=== PATIENT | female | born 1975 | race Asian ===

== ENCOUNTER 2019-02-27 13:00 | Emergency (ER) | payer OTHER ==
[~2019-02-27] VITALS: Ht 152.4 cm; Wt 49.9 kg
[2019-02-27] MEDS ORDERED: NKM (13:05)
--- NOTE | 2019-02-27 13:12 | NUR ---
ED Nurse Note: Received report from Elisa SIMMS. Pt came in due to dizziness started an hour ago. Denies N/v and CP. AAO x4 and ambulates with steady gait. Respirations are even and non labored breathing.
[2019-02-27] MEDS ORDERED: Omnipaue 350mg/ml 100ml vial INJ PRN (13:45)
[2019-02-27] MEDS ORDERED: Dextrose 5%/Lactated Ringer's 1,000 ML IV SCH (13:45)
[2019-02-27 14:00] VITALS: BP 115/75
[2019-02-27 14:21] LABS: BASOPHILS % (AUTO) 0.3 % (0.0-2.0); EOSINOPHILS % (AUTO) 0.6 % (0.0-3.0); HEMATOCRIT 38.1 % (37.0-47.0); HEMOGLOBIN 11.8 G/DL (12.0-16.0); LYMPHOCYTES % (AUTO) 8.2 % (20.0-45.0); MEAN CORPUSCULAR VOLUME 81 FL (80-99); MONOCYTES % (AUTO) 9.2 % (1.0-10.0); NEUTROPHILS % (AUTO) 81.8 % (45.0-75.0); PLATELET COUNT 169 K/UL (150-450); RED CELL DISTRIBUTION WIDTH 18.2 % (11.6-14.8); WHITE BLOOD COUNT 16.9 K/UL (4.8-10.8)
[2019-02-27 14:44] LABS: ANION GAP 6 mmol/L (5-15); BLOOD UREA NITROGEN 8 mg/dL (7-18); CALCIUM 8.6 MG/DL (8.5-10.1); CARBON DIOXIDE 29 MMOL/L (21-32); CHLORIDE 103 MMOL/L (98-107); CREATININE 0.7 MG/DL (0.55-1.30); POTASSIUM 3.5 MMOL/L (3.5-5.1); SODIUM 138 MMOL/L (136-145)
[2019-02-27 14:48] LABS: ALANINE AMINOTRANSFERASE 18 U/L (12-78); ALBUMIN 3.3 G/DL (3.4-5.0); ALBUMIN/GLOBULIN RATIO 0.8 (1.0-2.7); ALKALINE PHOSPHATASE 68 U/L (46-116); ASPARTATE AMINO TRANSFERASE 29 U/L (15-37); BILIRUBIN,TOTAL 0.4 MG/DL (0.2-1.0)
--- NOTE | 2019-02-27 14:54 | Diagnostic Imaging Report ---
Indication: Cough Technique: One view of the chest Comparison: none Findings: Lungs and pleural spaces are clear. Heart size is normal. Impression: No acute process This agrees with the preliminary interpretation provided by the emergency room physician
--- NOTE | 2019-02-27 15:46 | NUR ---
ED Nurse Note: Pt taken to CT and stable.
--- NOTE | 2019-02-27 15:47 | Emergency Room Report ---
History of Present Illness General Chief Complaint: Dizziness Source: Patient Present Illness HPI Patient presents emergency department today complaining of dizziness. Patient also had an episode of chest pain and shortness of breath. Because of patient' s recent embolectomy patient came here for further evaluation. Patient's surgeon is Dr. Ngo. Patient denies any leg pain leg swelling. Symptoms noted to be moderate. Currently patient is asymptomatic. No other complaints are noted. No other modifying factors. No other associated signs and symptoms. No other complaints were noted. Allergies: Coded Allergies: No Known Allergies (Unverified , 02/27/19) Patient History Past Medical History: none PSxH Narrative Uterine embolization of fibroids Pertinent Family History: none Social History: Denies: smoking, alcohol use, drug use Last Menstrual Period: 01/26/19 Now: No Reviewed Nursing Documentation: PMH: Agreed; PSxH: Agreed Nursing Documentation-PMH Past Medical History: No History, Except For Review of Systems All Other Systems: negative except mentioned in HPI Physical Exam Vital Signs Date Time Temp Pulse Resp B/P (MAP) Pulse Ox O2 Delivery O2 Flow Rate FiO2 02/27/19 13:02 98.1 94 16 101/67 (78) 98 Room Air Sp02 EP Interpretation: reviewed, normal General Appearance: normal inspection, well appearing, no apparent distress, alert Head: atraumatic Eyes: bilateral eye normal inspection ENT: normal ENT inspection, hearing grossly normal, normal voice Neck: normal inspection, full range of motion, supple, no bony tend Respiratory: normal inspection, lungs clear, normal breath sounds, no respiratory distress, no retraction, no wheezing Cardiovascular #1: regular rate, rhythm, no edema Gastrointestinal: normal inspection, normal bowel sounds, non tender, soft, no guarding, no hernia Genitourinary: no CVA tenderness Musculoskeletal: normal inspection, back normal, normal range of motion Neurologic: normal inspection, alert, responsive, speech normal Psychiatric: normal inspection, judgement/insight normal, mood/affect normal Medical Decision Making Diagnostic Impression: Primary Impression: Dizziness Additional Impression: Dyspnea ER Course Patient presents emergency department today complaining of shortness of breath. Dizziness and chest discomfort. Differential diagnoses include acute pneumonia, CHF, acute coronary syndrome, pneumothorax, asthma, pulmonary embolism COPD flare, just to name a few. Given the severity of the patient's presentation I felt this is a highly complex patient. This patient required extensive workup. Patient's laboratory work-up was negative. However patient require CT scan to rule out pulmonary embolism. Case was signed out to Dr. Xiao for final disposition. . Labs Test 02/27/19 13:53 02/27/19 13:56 Urine HCG, Qualitative Negative (NEGATIVE) White Blood Count 16.9 K/UL (4.8-10.8) Red Blood Count 4.70 M/UL (4.20-5.40) Hemoglobin 11.8 G/DL (12.0-16.0) Hematocrit 38.1 % (37.0-47.0) Mean Corpuscular Volume 81 FL (80-99) Mean Corpuscular Hemoglobin 25.1 PG (27.0-31.0) Mean Corpuscular Hemoglobin Concent 30.9 G/DL (32.0-36.0) Red Cell Distribution Width 18.2 % (11.6-14.8) Platelet Count 169 K/UL (150-450) Mean Platelet Volume 9.3 FL (6.5-10.1) Neutrophils (%) (Auto) 81.8 % (45.0-75.0) Lymphocytes (%) (Auto) 8.2 % (20.0-45.0) Monocytes (%) (Auto) 9.2 % (1.0-10.0) Eosinophils (%) (Auto) 0.6 % (0.0-3.0) Basophils (%) (Auto) 0.3 % (0.0-2.0) Prothrombin Time 10.2 SEC (9.30-11.50) Prothromb Time International Ratio 1.0 (0.9-1.1) Activated Partial Thromboplast Time 30 SEC (23-33) Sodium Level 138 MMOL/L (136-145) Potassium Level 3.5 MMOL/L (3.5-5.1) Chloride Level 103 MMOL/L (98-107) Carbon Dioxide Level 29 MMOL/L (21-32) Anion Gap 6 mmol/L (5-15) Blood Urea Nitrogen 8 mg/dL (7-18) Creatinine 0.7 MG/DL (0.55-1.30) Estimat Glomerular Filtration Rate > 60 mL/min (>60) Glucose Level 105 MG/DL (74-106) Calcium Level 8.6 MG/DL (8.5-10.1) Total Bilirubin 0.4 MG/DL (0.2-1.0) Aspartate Amino Transf (AST/SGOT) 29 U/L (15-37) Alanine Aminotransferase (ALT/SGPT) 18 U/L (12-78) Alkaline Phosphatase 68 U/L (46-116) Troponin I 0.000 ng/mL (0.000-0.056) Total Protein 7.6 G/DL (6.4-8.2) Albumin 3.3 G/DL (3.4-5.0) Globulin 4.3 g/dL Albumin/Globulin Ratio 0.8 (1.0-2.7) EKG Diagnostic Results Rate: normal Rhythm: NSR ST Segments: no acute changes Rhythm Strip Diag. Results EP Interpretation: yes Rate: 89 Rhythm: NSR, no PVC's, no ectopy Chest X-Ray Diagnostic Results Chest X-Ray Diagnostic Results : Chest X-Ray Ordered: Yes # of Views/Limited/Complete: 1 View Indication: Chest Pain EP Interpretation: Yes Interpretation: no consolidation, no effusion, no pneumothorax, no acute cardiopulmonary disease Impression: No acute disease Electronically Signed by: Electronically signed by Doc See MD Last Vital Signs Date Time Temp Pulse Resp B/P (MAP) Pulse Ox O2 Delivery O2 Flow Rate FiO2 02/27/19 14:00 98.3 78 20 115/75 99 Room Air Referrals: Rojelio Ngo MD (PCP) Doc See MD Feb 27, 2019 15:47
--- NOTE | 2019-02-27 16:00 | NUR ---
ED Nurse Note: Pt came back from CT and stable.
[2019-02-27 16:04] VITALS: BP 122/79
--- NOTE | 2019-02-27 16:36 | Diagnostic Imaging Report ---
ndication: Chest pain and shortness of breath Technique: IV administration nonionic contrast. Spiral acquisitions obtained from the lung bases to the lung apices. Multiplanar and 3-D reconstructions were generated. Total dose length product 855 mGycm. CTDIvol(s) 54 mGy. Dose reduction achieved using automated exposure control Comparison: none Findings: There is good quality opacification of the pulmonary arteries. No intraluminal filling defects or other findings to suggest acute pulmonary embolus are demonstrated. No pulmonary artery dilatation demonstrated. No right ventricular dilatation. The heart size is normal. Normal caliber and branching anatomy of the great neck vessels. No evidence of thoracic aortic aneurysm or dissection demonstrated. There is a subpleural 5 mm nodule in the posterior left lower lobe, image 64 series 4. No other nodules are demonstrated. The lungs are otherwise clear. No infiltrates, effusions, or masses or congestion. The included portion of the thyroid demonstrates a subcentimeter left lower pole nodule. No mediastinal or hilar mass or adenopathy. There is a small sliding-type hiatal hernia. No axillary or chest wall mass or adenopathy. The included upper abdominal anatomy is unremarkable. Impression: Negative for acute pulmonary embolus or other acute thoracic pathology Incidental finding of subpleural left lower lobe 5 mm nodule. No further follow-up is necessary if there is no significant smoking history or other risk factors for lung carcinoma. If there are significant risk factors, then follow-up CT at 6-12 months is recommended Subcentimeter left lower pole thyroid nodule incidentally noted. No further follow-up necessary Small sliding-type hiatal hernia The CT scanner at [facility] is accredited by the [employer] and the scans are performed using protocols designed to limit radiation exposure to as low as reasonably achievable to attain images of sufficient resolution adequate for diagnostic evaluation.
[2019-02-27 17:04] VITALS: BP 134/76
--- NOTE | 2019-02-27 17:04 | NUR ---
ER DISCHARGE NOTE: Patient is cleared to be discharged per ERMD, pt is aox4, on room air, with stable vital signs. pt was given dc instructions, pt was able to verbalize understanding, pt id band and iv site removed without complications. pt is able to ambulate with steady gait. pt took all belongings and left with her family member.
--- NOTE | 2019-03-01 07:21 | General Surgery Progress Note ---
General Surgery-Progress Note Subjective Day of Surgery: february 25 Procedure Performed uterine artery embolization Symptoms: improved, tolerating diet, voiding well, passing flatus Objective Dressing: dry Wound: clean, dry, intact Drains: none Cardiovascular: RSR Respiratory: clear Abdomen: soft, flat, scaphoid, tenderness, present bowel sounds Extremities: no edema, no tenderness, no cyanosis wbc 16K, chem panel wnl. Imaging CT angiogram chest negative for pulmonary edema Additional Comments ekg no acute changes Assessment Additional Comments no recurrent symptoms of syncope, sob. chest pain Plan Additional Comments stable for discharge from ED Rojelio Ngo MD Mar 01, 2019 07:21
--- NOTE | 2019-03-01 17:36 | Cardiology Report ---
APPROVED REPORT EKG Measurement Heart [id number] ID [id number] Normal sinus rhythm Nonspecific T wave abnormality Prolonged QT Abnormal ECG
== END 2019-02-27 17:58 | disposition home or self-care (01) ==
LOC: EMR 13:50
DX: R42 Dizziness and giddiness (principal); R06.00 Dyspnea, unspecified; R07.9 Chest pain, unspecified
CPT/HCPCS: 36415; 71045; 71275; 80053; 81025; 84484; 85025; 85610; 85730; 93005; 96360; 96361; 99284; Q9967; J7030